=== PATIENT | male | born 1960 | race Caucasian/White ===

== ENCOUNTER 2016-09-23 09:24 | Outpatient (CLI) | payer OTHER ==
[~2016-09-23] VITALS: Ht 180.3 cm; Wt 163.3 kg
[~2016-09-23 09:24] MED LIST: ALDACTONE50 MG PO; ASPIRIN CHEWABL81 MG PO; BRILINTA90 MG PO; BROMOCRIPTINE2.5 MG PO; CARDURA XL8 MG PO; CATAPRES 0.1MG0.1 MG PO; COREG 25MG TAB25 MG PO; CYMBALTA60 MG PO; ISOSORBIDE MONO30 MG PO; LIPITOR TAB 2020 MG PO; LORTAB 7.5-3251 EACH PO; LOSARTAN-HCTZ1 EAC1 PO; NORVASC 5 MG TAB5 MG PO; PEPCID20 MG PO; PROTONIX 40 MG40 M1 PO
[2016-09-23 12:38] LABS: HEMOGLOBIN 17.2 gm/dl (14.0-17.5); RED BLOOD COUNT 5.73 M/UL (4.20-5.50); WHITE BLOOD COUNT 7.5 K/UL (4.5-11.0)
[2016-09-23] MEDS ORDERED: CARDURA 2MG TAB2 MG PO (12:41)
[2016-09-23] MEDS ORDERED: LOSARTAN-HCTZ1 EAC1 PO (12:42)
[2016-09-23] MEDS ORDERED: ANTIVERT 25MG T25 MG PO (12:43)
[2016-09-23] MEDS ORDERED: NITROSTAT 0.40.4 MG SL (12:44)
[2016-09-24] MEDS ORDERED: HYDRALAZINE HCL50 MG PO (12:56)
[2016-09-24] MEDS ORDERED: HYDROCHLOROTHIA25 MG PO (12:58)
[2016-09-24] MEDS ORDERED: COZAAR100 MG PO (12:58)
[2016-09-24] MEDS ORDERED: LOPRESSOR50 MG PO (13:00)
[2016-09-24] MEDS ORDERED: PROCARDIA10 MG PO (13:01)
[2016-09-24] MEDS ORDERED: TOPAMAX50 MG PO (13:16)
[2016-09-24] MEDS ORDERED: FIORICET TAB1 EA PO (13:17)
== END 2016-09-24 13:47 | disposition home or self-care (01) ==
LOC: NM 09:24 → CATH 09:24 → NM 09:30 → CCU 18:39 → CATH 09-24 13:47
PROVIDERS: Internal Medicine Cardiovascular Disease
DX: I10 Essential (primary) hypertension (principal); I25.10 Atherosclerotic heart disease of native coronary artery without angina pectoris; R51 Headache; R07.89 Other chest pain; M54.12 Radiculopathy, cervical region; N28.9 Disorder of kidney and ureter, unspecified; E78.5 Hyperlipidemia, unspecified; Z95.5 Presence of coronary angioplasty implant and graft; R06.02 Shortness of breath; R42 Dizziness and giddiness; Z88.8 Allergy status to other drugs, medicaments and biological substances; Z79.899 Other long term (current) drug therapy; F32.9 Major depressive disorder, single episode, unspecified; G47.33 Obstructive sleep apnea (adult) (pediatric); Z86.69 Personal history of other diseases of the nervous system and sense organs; Z79.82 Long term (current) use of aspirin; Z79.891 Long term (current) use of opiate analgesic; Z88.5 Allergy status to narcotic agent
CPT/HCPCS: 36415; 70450; 78452; 80048; 85025; 93005; 93017; A9502; C1769; C1887; J0280; J0360; J0461; J0583; J1644; J2250; J2785; J3010; J7030; Q9963

== ENCOUNTER → 2022-04-09 | Outpatient (CLI) | payer OTHER ==
[~2022-04-09] MED LIST changes: +ANTIVERT 25MG T25 MG PO; +CARDURA 2MG TAB2 MG PO; +COZAAR100 MG PO; +FIORICET TAB1 EA PO; +HYDRALAZINE HCL50 MG PO; +HYDROCHLOROTHIA25 MG PO; +LOPRESSOR50 MG PO; +NITROSTAT 0.40.4 MG SL; +PROCARDIA10 MG PO; +TOPAMAX50 MG PO
== END ==
LOC: US 09:30
DX: I10 Essential (primary) hypertension (principal); N28.1 Cyst of kidney, acquired
CPT/HCPCS: 93975